=== PATIENT | female | born 1965 | race Caucasian/White ===

== ENCOUNTER 2022-02-11 10:48 | Outpatient (REF) | payer BC, SELFPAY ==
[2022-02-11 16:12] LABS: Anion Gap 7.8 mmol/L (3-11); BUN 15 mg/dL (7-18); CO2 28.2 mmol/L (21.0-32.0); CREATININE 0.7 mg/dL (0.55-1.02); Calcium 9.7 mg/dL (8.5-10.1); Calculated LDL 181 mg/dL (<100); Chloride 106 mmol/L (98-107); Cholesterol 288 mg/dL (<200); Estimated GFR 102.71 (mL/min/1.73m2); Glucose 82 mg/dL (74-106); HDL Cholesterol 63 mg/dL (40-60); Potassium 4.4 mmol/L (3.5-5.1); Sodium 142 mmol/L (136-145); TSH 6.23 uIU/mL (0.36-3.74); Triglyceride 224 mg/dL (<150)
== END 2022-02-11 10:49 | disposition home or self-care (01) ==
LOC: NCHCN 10:48
PROVIDERS: PCP Internal Medicine; Visit Provider Registered Nurse
DX: E78.5 Hyperlipidemia, unspecified (principal); E03.9 Hypothyroidism, unspecified; Z00.00 Encounter for general adult medical examination without abnormal findings
CPT/HCPCS: 80048; 80061; 84443

== ENCOUNTER 2022-04-02 14:39 | Outpatient (REF) | payer BC, SELFPAY ==
[2022-04-02 14:49] LABS: Abs Immature Grans 0.02 10^3/uL (0.0-0.06); Absolute Basophil Count 0.04 10^3/uL (0.0-0.2); Absolute Eosinophil Count 0.09 10^3/uL (0.0-0.7); Absolute Lymphocyte Count 1.84 10^3/uL (1.2-3.4); Absolute Monocyte Count 0.53 10^3/uL (0.1-0.8); Basophils % 0.8; Eosinophils % 1.7; HCT 40.9 % (36.0-46.0); HGB 13.5 g/dL (11.2-15.7); Immature Grans % 0.4; Lymphocytes % 34.6; MCH 31.8 pg (27.0-33.0); MCV 96 fL (80-95); MPV 9.7 fL (8.0-11.0); Neutrophils % 52.5; Platelet Count 298 10^3/uL (130-400); RBC 4.25 10^6/uL (3.93-5.22); RDW 12.5 % (11.7-14.6); RDW-SD 43.7 fL; WBC 5.32 10^3/uL (4.4-10.8)
[2022-04-02 17:38] LABS: TSH 3.12 uIU/mL (0.36-3.74)
== END 2022-04-02 14:40 | disposition home or self-care (01) ==
LOC: NCHCN 14:39
PROVIDERS: PCP Internal Medicine; Visit Provider Registered Nurse
DX: E03.9 Hypothyroidism, unspecified (principal); R61 Generalized hyperhidrosis
CPT/HCPCS: 84443; 85025

== ENCOUNTER 2022-07-27 16:58 | Outpatient (REF) | payer BC, SELFPAY | END 2022-07-27 16:59 | disposition home or self-care (01) | LOC: NCHCN 16:58 | PROVIDERS: PCP Internal Medicine; Visit Provider Family Medicine | DX: R30.0 Dysuria (principal) | CPT/HCPCS: 87077; 87086; 87186 ==

== ENCOUNTER 2023-04-12 20:46 | Outpatient (REF) | payer BC, SELFPAY ==
[2023-04-12 15:13] LABS: TSH (W/Ref FT4) 9.76 uIU/mL (0.36-3.74)
[2023-04-12 15:34] LABS: FREE T4 0.78 ng/dL (0.76-1.46)
== END 2023-04-12 20:47 | disposition home or self-care (01) ==
LOC: NCHCN 20:46
PROVIDERS: PCP Internal Medicine; Visit Provider Family Medicine
DX: E03.9 Hypothyroidism, unspecified (principal)
CPT/HCPCS: 84439; 84443

== ENCOUNTER 2023-05-24 08:59 | Outpatient (REF) | payer BC, SELFPAY ==
--- OUTSIDE RECORDS SUMMARY | 2023-05-24 09:01 | XMS_ITS | CCD ---
Author Name Unknown Address [address] [place] [address] [id number] Organization Unknown Address [address] [place] [address] [phone] Care Team Providers Care Velocity Shooter Name Role Phone PAOLA MACKAH Jameson Attending Physician [phone] Vital Signs Unknown or Not Available. Allergies Unknown or Not Available. Procedures Unknown or Not Available. History of Immunizations Unknown or Not Available. Problems Unknown or Not Available. Results Unknown or Not Available. Active Medications Unknown or Not Available. Medications Administered During Visit Unknown or Not Available. 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 Discharge Instructions You were admitted to [facility] on 10/12/2022 12:33 with a principal diagnosis of Intraductal carcinoma in situ of right breast You were discharged from [facility] on 10/12/2022 12:33 Should you have any questions prior to discharge, please contact a member of your healthcare team. If you have left the hospital and have any questions, please contact your primary care physician. Chief Complaint and Reason For Visit Unknown or Not Available. Function Status Unknown or Not Available. Plan of Care Unknown or Not Available. Referral/Transition of Care Unknown or Not Available.
--- OUTSIDE RECORDS SUMMARY | 2023-05-24 09:01 | XMS_ITS | CCD ---
Author Name Unknown Address [address] [place] [address] [phone] Organization Unknown Address [address] [place] [address] [phone] Care Team Providers Care Dairy Worker Name Role Phone FINA ABRAMS MD Attending Physician [phone] Vital Signs Unknown or Not Available. Allergies Unknown or Not Available. Procedures Unknown or Not Available. History of Immunizations Unknown or Not Available. Problems Unknown or Not Available. Results OCCULT BLOOD STOOL 1 SCR NON -NEOPLASM - Collect Date/Time: 12/02/2020 09:00 Test Name Code Test Result Test Units Test Ref Rang e OCCULT BLD,STOOL 2335-8 NEGATIVE N/A Active Medications Unknown or Not Available. Medications Administered During Visit Unknown or Not Available. Encounters Encounter Diagnosis Diagnosis Code Start Date Hyperlipidemia [id number] 12/02/2020 Social History Smoking Status Code Start Date End Date Never smoker [id number] Patient Decision Aids Unknown or Not Available. Discharge Instructions You were admitted to [facility] on 12/02/2020 19:26 with a principal diagnosis of Hyperlipidemia, unspecified You had the following tests done:OCCULT BLOOD STOOL 1 SCR NON-NEOPLASM You were discharged from [facility] on 12/02/2020 19:26 Should you have any questions prior to [...]
--- OUTSIDE RECORDS SUMMARY | 2023-05-24 09:01 | XMS_ITS | CCD ---
Author Name Unknown Address [address] [place] [address] [id number] Organization Unknown Address [address] [place] [address] [phone] Care Team Providers Care Business Systems Lead Name Role Phone FINA ABRAMS MD Attending Physician [phone] Vital Signs Unknown or Not Available. Allergies Unknown or Not Available. Procedures Unknown or Not Available. History of Immunizations Unknown or Not Available. Problems Unknown or Not Available. Results FREE THYROXINE (FREE T4) - C ollect Date/Time: 11/28/2020 12:13 Test Name Code Test Result Test Units Test Ref Rang e FREE THYROXINE 3024-7 0.80 ng/dL L=0.76 H=1 .46 LIPID PANEL - Collect Date/T elmo: 11/28/2020 12:13 Test Name Code Test Result Test Units Test Ref Rang e CHOLESTEROL 2093-3 249 mg/dL L=0 H=200 TRIGLYCERIDES 2571-8 130 mg/dL L=53 H=223 HDL 2085-9 58 mg/dL L=37 H=91 non-HDL-C 40836-9 191 mg/dL L=0 H=160 LDL (CALC) 12863-2 165 mg/dL L=0 H=130 % HDL 23.3 % Chol/HDL Ratio 9830-1 4.3 L=0.0 H=4. 4 CHD Relative Risk 1.0 x Avg L=0.0 H =1.0 LDL/HDL Ratio 32544-4 2.8 L=0.0 H=3.2 CHD Relative Risk. 0.9 x Avg L=0.0 H=1.0 FASTING STATUS: FASTING N/A TSH THYROID STIMULATING HORM ONE - Collect Date/Time: 11/28/2020 12:13 Test Name Code Test Result Test Units Test Ref Rang e TSH 3014-8 3.908 uIU/mL L=0.360 H=3.74 0 Active Medications Unknown or Not Available. Medications Administered During Visit Unknown or Not Available. Encounters Encounter Diagnosis Diagnosis Code Start Date Hypothyroidism [id number] 11/28/2020 Social History Smoking Status Code Start Date End Date Never smoker [id number] Patient Decision Aids Unknown or Not Available. Discharge Instructions You were admitted to [facility] on 11/28/2020 11:37 with a principal diagnosis of Hypothyroidism, unspecified You had the following tests done:FREE THYROXINE (FREE T4)LIPID PANELTSH THYROID STIMULATING HORMONE You were discharged from [facility] on 11/28/2020 11:38 Should you have any questions prior to [...]
--- OUTSIDE RECORDS SUMMARY | 2023-05-24 09:01 | XMS_ITS | CCD ---
Author Name Unknown Address [address] [place] [address] [phone] Organization Unknown Address [address] [place] [address] [phone] Care Team Providers Care Checkering Machine Operator Name Role Phone HAO VARNER Attending Physician [phone] Vital Signs Unknown or Not Available. Allergies Unknown or Not Available. Procedures Unknown or Not Available. History of Immunizations Unknown or Not Available. Problems Unknown or Not Available. Results Unknown or Not Available. Active Medications Unknown or Not Available. Medications Administered During Visit Unknown or Not Available. Encounters Encounter Diagnosis Diagnosis Code Start Date Unspecified lump in the left breast, lower outer quadrant N6323 08/10/2022 Social History Smoking Status Code Start Date End Date Never smoker [id number] Patient Decision Aids Unknown or Not Available. Discharge Instructions You were admitted to [facility] on 08/10/2022 09:46 with a principal diagnosis of Unspecified lump in the left breast, lower outer quadrant You were discharged from [facility] on 08/10/2022 09:46 Should you have any questions prior to discharge, please contact a member of your healthcare team. If you have left the hospital and have any questions, please contact your primary care physician. Chief Complaint and Reason For Visit Chief Complaint Date of Onset RT BREAST LUMP Function Status Unknown or Not Available. Plan of Care Unknown or Not Available. Referral/Transition of Care Unknown or Not Available.
[2023-05-24 15:55] LABS: FREE T4 0.62 ng/dL (0.76-1.46)
== END 2023-05-24 09:00 | disposition home or self-care (01) ==
LOC: NCHCN 08:59
PROVIDERS: PCP Internal Medicine; Visit Provider Family Medicine
DX: E03.9 Hypothyroidism, unspecified (principal)
CPT/HCPCS: 84439; 84443

== ENCOUNTER 2023-08-09 17:08 | Outpatient (REF) | payer BC, SELFPAY ==
[2023-08-09 16:48] LABS: TSH 2.96 uIU/Ml (0.36-3.74)
== END 2023-08-09 17:09 | disposition home or self-care (01) ==
LOC: NCHCN 17:08
PROVIDERS: PCP Internal Medicine; Visit Provider Family Medicine
DX: E03.9 Hypothyroidism, unspecified (principal)
CPT/HCPCS: 84443

== ENCOUNTER 2024-04-23 19:01 | Outpatient (REF) | payer BC, SELFPAY ==
[2024-04-23 21:57] LABS: Anion Gap 9.7 mmol/L (3-11); BUN 13 mg/dL (7-18); CO2 28.3 mmol/L (21.0-32.0); CREATININE 0.9 mg/dL (0.55-1.02); Calcium 9.6 mg/dL (8.5-10.1); Calculated LDL 203 mg/dL (<100); Chloride 107 mmol/L (98-107); Cholesterol 334 mg/dL (<200); Estimated GFR 75.03 (mL/min/1.73m2); Glucose 125 mg/dL (74-106); HDL Cholesterol 64 mg/dL (40-60); Potassium 3.8 mmol/L (3.5-5.1); Sodium 145 mmol/L (136-145); TSH (W/Ref FT4) 5.77 uIU/mL (0.36-3.74); Triglyceride 335 mg/dL (<150)
[2024-04-23 22:26] LABS: FREE T4 0.79 ng/dL (0.76-1.46)
== END 2024-04-23 19:02 | disposition home or self-care (01) ==
LOC: NCHCN 19:01
PROVIDERS: PCP Internal Medicine; Visit Provider Family Medicine
DX: E03.9 Hypothyroidism, unspecified (principal); Z13.220 Encounter for screening for lipoid disorders; R53.83 Other fatigue
CPT/HCPCS: 80048; 80061; 84439; 84443

== ENCOUNTER 2024-07-03 15:49 | Outpatient (REF) | payer BC, SELFPAY ==
[2024-07-03 22:34] LABS: TSH (W/Ref FT4) 0.13 uIU/mL (0.36-3.74)
[2024-07-03 22:47] LABS: Hemoglobin A1C 5.8 % (<5.7)
[2024-07-04 20:21] LABS: T4, Free 1.4 ng/dL (0.8-2.2)
== END 2024-07-03 15:50 | disposition home or self-care (01) ==
LOC: NCHCN 15:49
PROVIDERS: PCP Internal Medicine; Visit Provider Family Medicine
DX: E03.9 Hypothyroidism, unspecified (principal); R73.9 Hyperglycemia, unspecified
CPT/HCPCS: 83036; 84439; 84443

== ENCOUNTER 2024-09-27 16:19 | Outpatient (REF) | payer BC, SELFPAY ==
[2024-09-27 21:11] LABS: TSH 1.17 uIU/mL (0.36-3.74)
== END 2024-09-27 16:20 | disposition home or self-care (01) ==
LOC: NCHCN 16:19
PROVIDERS: PCP Internal Medicine; Visit Provider Family Medicine
DX: E03.9 Hypothyroidism, unspecified (principal)
CPT/HCPCS: 84443